=== PATIENT | female | born 1965 | race Caucasian/White ===

== ENCOUNTER → 2016-08-09 | Outpatient (CLI) | payer OTHER ==
[~2016-08-09] VITALS: Ht 154.9 cm; Wt 100.7 kg
[~2016-08-09] MED LIST: ACCUNEB SO1.25 MG/1 INH; AMERGE1 MG; ASMANEX0.135 G1; ASMANEX220 MC2 IH; ASPIR 8181 MG PO; AYR SALINE50 M1; BARIATRIC VITAMIN PO; BUTALB-ACETAMI1 EACH PO; CARAFATE1 GM/10 ML PO; CYCLOBENZAPRINE5 MG PO; ESCITALOPRAM OX10 MG PO; FLONASE 0.05%50 MCG; FOLBIC RF TABL1 EACH PO; HYDROCHLOROTH12.5 M1 PO; INDERAL 20 MG T20 M1; LAMICTAL100 MG PO; LEVOTHYROXINE0.05 MG PO; MEDROLDOSEPACK PO; MOBIC15 MG PO; NEURONTIN 300300 M1 PO; NODOLOR CAPSUL1 EACH; NYAMYC15 GM TOP; OMEPRAZOLE20 M1 PO; OXYCONTIN10 M1 PO; PRINIVIL10 MG PO; PROMETHAZINE12.5 M1 PO; PROPRANOLOL 1010 MG; PROPRANOLOL 4040 M1 PO; SINGULAIR 10 MG10 M1 PO; STRATTERA80 MG PO; TRAZODONE HCL50 MG; TROKENDI XR25 MG; VISTARIL 25 MG25 M1 PO; VITAMIN B-125000 MCG SL; VITAMIN D31000 UNI2 PO; VITAMIN D3400 UNIT PO; VOLTAREN GEL 1100 G1; WELLBUTRIN XL300 MG PO; ZYRTEC10 MG PO
--- NOTE | ~2016-08-09 | P ---
[facility] [place] [address] PROCEDURE REPORT Name: TRACIE BRANDTSamson Lomax Room #: REG [facility].#: [id number] Admission: 08/09/16 Attend Phys: Dusty Maya MD, F Discharge: Date of : 69 Report #: [id number] THIS REPORT FOR: //name// CC: Kerry Maya DATE OF SERVICE: 08/09/2016 SURGEON: Dusty Maya M.D. PREOPERATIVE DIAGNOSES: 1. Morbid obesity (body mass index 42), status post laparoscopic adjustable gastric band placement. 2. Gastroesophageal reflux disease. 3. Obstructive sleep apnea. 4. Chronic obstructive pulmonary disease. 5. Asthma. 6. Arthritis. 7. Diverticulosis. POSTOPERATIVE DIAGNOSES: 1. Morbid obesity (body mass index 42), status post laparoscopic adjustable gastric band placement. 2. Abnormal adjustable gastric band motion. 3. Gastroesophageal reflux disease. 4. Obstructive sleep apnea. 5. Chronic obstructive pulmonary disease. 6. Asthma. 7. Arthritis. 8. Diverticulosis. PROCEDURE: Thorough esophagogastroduodenoscopy. ANESTHESIA: Propofol 100 mg and ketamine 30 mg. ESTIMATED BLOOD LOSS: Zero. SPECIMEN: None. COMPLICATIONS: None appreciated. INDICATIONS FOR PROCEDURE: This is a 51-year-old female patient, being followed for consideration for revisional bariatric surgery. She stands 5 feet 1-1/2 inches and weighs nearly 223 pounds with a BMI of 42.1. She has tried numerous weight loss programs and plans and even underwent laparoscopic adjustable gastric band placement several years ago. She has maintained a 75 pound weight [facility] [address] [place] [address] PROCEDURE REPORT Name: LEANNE BRANDT Room #: REG [facility]#: [id number] Admission: 08/09/16 Attend Phys: Dusty Maya MD, F Discharge: Date of : 69 Report #: [id number] loss from the operation, but is unable to keep down any food whatsoever. She complains of reflux and regurgitation of food. As a part of her workup for revisional surgery, EGD is indicated. PROCEDURAL FINDINGS: The GE junction and Z-line were measured at 37 cm from the teeth with the band enfolding measured at 40-41 cm from the teeth. The esophagus was normal. The stomach and duodenum were normal down to the third portion. On retroflexion of the scope, the band showed abnormal motion with swallowing. The patient was awakened enough to swallow during the procedure. No other significant findings were present. DESCRIPTION OF PROCEDURE IN DETAIL: After the benefits and risks of the procedure were explained to the patient, which include but not limited to risks of bleeding and perforation, an informed consent was obtained. The patient was identified in the preoperative holding area. She was then taken to the procedure room where a timeout was performed to identify the correct patient and procedure. A bite block was placed. The patient was then given IV sedation. When adequately sedated, the gastroscope was inserted into the patient's oropharynx and then passed down the esophagus, where the GE junction and Z-line were visualized. The scope was then advanced beyond the enfolding of the adjustable gastric band. The scope was advanced beyond the pylorus to the third portion of the duodenum. The scope was then slowly withdrawn. With circumferential views of the duodenum, there were no polyps, masses, diverticula, or ulcers seen. The duodenal papilla was normal. With the scope withdrawn into the antrum of the stomach, the scope was retroflexed and a retrograde view of the cardia was seen. The patient was awakened slightly and asked to swallow where abnormal motion was present. The scope was then straightened and slowly withdrawn. The stomach was decompressed. There were no polyps, masses, diverticula, or ulcers seen in the stomach. The scope was then slowly withdrawn through the normal appearing esophagus. The patient tolerated the procedure well. She was awakened and returned to the recovery room in stable condition with no apparent complications. My recommendation is that the patient will be appropriate for removal of her adjustable gastric band and for revisional bariatric surgery in the form of sleeve gastrectomy, which can likely be undertaken during laparoscopic removal of her adjustable gastric band and port. <ELECTRONICALLY SIGNED> By: Dusty Maya MD, FACS 08/11/16 0834 1607 1802 Dusty Maya MD, FACS /nt
== END ==
LOC: GI 08:17
DX: K21.9 Gastro-esophageal reflux disease without esophagitis (principal); G47.33 Obstructive sleep apnea (adult) (pediatric); J45.909 Unspecified asthma, uncomplicated; J44.9 Chronic obstructive pulmonary disease, unspecified; M19.90 Unspecified osteoarthritis, unspecified site; K57.30 Diverticulosis of large intestine without perforation or abscess without bleeding; I10 Essential (primary) hypertension; F41.8 Other specified anxiety disorders; Z87.891 Personal history of nicotine dependence; Z98.84 Bariatric surgery status
CPT/HCPCS: 62110; 62900

== ENCOUNTER → 2016-11-03 | Outpatient (CLI) | payer OTHER ==
--- NOTE | ~2016-11-03 | 2DMMODE ---
[facility] [address] [place] [address] 2 D/M-MODE ECHOCARDIOGRAM Name: KARLYLEANNE J Room #: REG [facility]#: [id number] Admission: 11/03/16 Attend Phys: Chace Titus MD Discharge: Date of : 69 Date of Service: 11/03/16 1445 Report #: [id number] THIS REPORT FOR: //name// ADDENDUM APPROVED REPORT Study performed: 11/03/2016 11:37:10 EXAM: Comprehensive 2D, Doppler, and color-flow Echocardiogram Patient Location: Out-Patient Room #: Echo lab Status: routine Other Information Study Quality: Adequate Indications Hypertension/HDD Enlarged heart 2D Dimensions RVDd: 36.58 mm LVEF(%): 64.79 (>50%) IVSd: 9.05 (7-11mm) LVOT Diam: 25.22 (18-24mm) LVDd: 53.90 mm PWd: 11.44 (7-11mm) Ascending Ao: 37.18 (22-36mm) LVDs: 34.62 (25-40mm) Aortic Root: 35.44 mm IVC: 12.00 mm Arevalo's LVEF: 64.79 % Volumes Left Atrial Volume (Systole) Single Plane 4CH: 41.60 mL Single Plane 2CH: 39.68 mL LA ESV Index: 24.00 mL/m2 Aortic Valve AoV Peak Ryan.: 1.89 m/s AO Peak Gr.: 14.35 mmHg LVOT Max P.15 mmHg LVOT Max V: 1.02 m/s DOC Vmax: 2.69 cm2 AI Vmax: 4.08 m/s AI Amador: 2.97 m/s2 AI PHT: 398.54 ms Mitral Valve E/A Ratio: 1.2 MV Decel. Time: 207.[address] [facility] [place] [place] [address] 2 D/M-MODE ECHOCARDIOGRAM Name: LEANNE BRANDT Room #: [facility]#: [id number] Admission: 11/03/16 Attend Phys: Chace Titus MD Discharge: Date of : 69 Date of Service: 11/03/16 1445 Report #: [id number] MV E Max Ryan.: 1.10 m/s MV A Ryan.: 0.92 m/s MV PHT: 60.17 ms IVRT: 106.11 ms Pulmonary Valve PV Peak Ryan.: 0.92 m/s PV Peak Gr.: 3.36 mmHg Pulmonary Vein P Vein S: 0.57 m/s P Vein A: 0.24 m/s P Vein D: 0.43 m/s P Vein A Dur.: 96.9 msec P Vein S/D Ratio: 1.33 Tricuspid Valve TR Peak Ryan.: 2.57 m/s RAP Estimate: 5.00 mmHg TR Peak Gr.: 26.37 mmHg PA Pressure: 31.00 mmHg Left Ventricle The left ventricle is normal size. There is normal LV segmental wall motion. Left ventricle wall thickness was at the upperlimits of normal The left ventricular systolic function is normal. The left ventricular ejection fraction is within the normal range. LVEF is 55-60%. The left ventricular diastolic function is normal. Right Ventricle The right ventricle is normal size. The right ventricular systolic function is normal. Atria The left atrium size is normal. The right atrium size is normal. Aortic Valve The aortic valve is normal in structure. Aortic valve is calcified. Mild aortic regurgitation. There is no aortic valvular stenosis. Mitral Valve The mitral valve is normal in structure. Trace mitral regurgitation. No evidence of mitral valve stenosis. Tricuspid Valve The tricuspid valve is normal in structure. There is trace tricuspid regurgitation. The right atrial pressure is estimated at 5 mmHg. There is no pulmonary hypertension. [facility] [address] [place] [address] 2 D/M-MODE ECHOCARDIOGRAM Name: LEANNE BRANDT Room #: REG [facility]#: [id number] Admission: 11/03/16 Attend Phys: Chace Titus MD Discharge: Date of : 69 Date of Service: 11/03/16 1445 Report #: [id number] Pulmonic Valve The pulmonary valve is normal in structure. Trace pulmonic regurgitation. Great Vessels The aortic root is normal in size. The ascending aorta is borderline dilated. IVC is normal in size and collapses >50% with inspiration. Pericardium There is no pericardial effusion. <Conclusion> The left ventricle is normal size. Left ventricle wall thickness was at the upperlimits of normal The left ventricular systolic function is normal. The right ventricle is normal size. The left atrium size is normal. Mild aortic regurgitation. The mitral valve is normal in structure. There is trace tricuspid regurgitation. The right atrial pressure is estimated at 5 mmHg. There is no pulmonary hypertension. <ELECTRONICALLY SIGNED> By: Chace Titus MD 11/03/16 1445 1445 1445 Chace Titus MD /INF
== END ==
LOC: CV 07:45
DX: I51.7 Cardiomegaly (principal); I35.1 Nonrheumatic aortic (valve) insufficiency

== ENCOUNTER 2016-12-02 05:04 | Day surgery (SDC) | payer OTHER ==
[~2016-12-02] VITALS: Ht 154.9 cm; Wt 97.1 kg
[2016-12-02] VITALS (8 sets, daily range): BP systolic 89–135; BP diastolic 53–93
--- NOTE | ~2016-12-02 | S ---
[facility] [place] [address] SURGICAL PATH RPT PROCEDURE Name: LEANNE BRANDT [id number] Admission: 12/02/16 Date of : 69 Discharge: 12/03/16 Report #: [id number] Path Case #: [id number] PATHOLOGY REPORT COLLECTION DATE: 12/02/2016 RECEIVED DATE: 12/02/2016 SUBMITTING PHYS: Dr. Dusty Maya OTHER PHYS: Dr. Kerry Hernandez SPECIMEN(S) RECEIVED: A.Gastric sleeve B.Old lap band * * * * * * * * * * * * FINAL DIAGNOSIS: A. Gastric mucosa, gastric sleeve, partial sleeve gastrectomy: - No diagnostic abnormalities present, history of morbid obesity. B. Old lap band, removal: - 45.3 cm of tubing material with a circular 9.5 cm fluid-filled band as well as a 5.5 cm port (gross exam only). (IUV:mgr; 12/05/2016) PATHOLOGIST: Marissa Charles M.D. REPORT ELECTRONICALLY SIGNED BY: Marissa Charles M.D. DATE/TIME: 12/05/2016 18:56 * * * * * * * * * * * * GROSS PATHOLOGY: A. The specimen is received in formalin, labeled "Leanne Brandt, gastric sleeve" is a partial gastrectomy specimen weighing 133 g and measuring 15.0 x 7.5 x 2.5 cm. The serosa is purple pollock to diaz-red, smooth and focally congested. The margins of resection are closed with a line of lisseth. The mucosa has a pink pollock to diaz red, velvety to congested appearance. The normal rugal folds are noted. No mass lesions or transmural defects are identified. [employer] sections are submitted in cassettes A1-A3. B. The specimen is received fresh, labeled "Leanne Brandt, old lap band" is a catheter with attached synthetic band and separately received portal. The segment of freely movable, pollock-white catheter tubing measures 45.3 cm in length the maximum diameter of 0.3 cm. At one end of the tubing is a circular synthetic, partially fluid filled band measuring 9.5 x 2.0 x 0.7 cm. The following is imprinted on the outer surface "ALLERGEN". No soft tissue is attached. No focal abnormalities are noted area in also the container is a catheter portal measuring 5.5 x 2.4 x 1.2 cm. On one aspect is a circular injection site measuring 1.1 cm in diameter. On the opposing surface [address] [address] SURGICAL PATH RPT PROCEDURE Name: ABHILASH BRANDTELYN Monie Room #: [facility]P [facility]..#: [id number] Admission: 12/02/16 Date of : 69 Discharge: 12/03/16 Report #: [id number] Path Case #: [id number] the following is imprinted "11.0 ALLERGEN 75LK 1408". No soft tissue is attached. No focal abnormalities are noted. No sections are taken. (JWP; 12/02/2016) CLINICAL HISTORY: Morbid obesity INITIAL CPT CODE(S): A; 18136 B; 82429 Professional services performed by [facility] at [facility] [address], [place] [address] Technical services performed by [employer] at [address] [place] [address], [address], [place] [address]. [facility] [address] [place] [address] PHONE: [phone] DIRECTOR: Jaden Chacon M.D. * * * END OF REPORT * * *
--- NOTE | ~2016-12-02 | O ---
[facility] [place] [address] OPERATIVE REPORT Name: LEANNE BRANDT Room #: [facility].#: [id number] Admission: 12/02/16 Attend Phys: Dusty Maya MD, F Discharge: 12/03/16 Date of : 69 Report #: [id number] THIS REPORT FOR: //name// CC: Kerry Maya DATE OF SERVICE: 12/02/2016 SURGEON: Dusty Maya MD SASH MAKER: Anastacia Lr MD PREOPERATIVE DIAGNOSES: 1. Morbid obesity (body mass index 42.5). 2. History of laparoscopic adjustable gastric band placement. 3. Abnormal motion of adjustable gastric band. 4. Gastroesophageal reflux disease. 5. Hypertension. 6. Arthritis. 7. Obstructive sleep apnea. 8. Hyperlipidemia. 9. Depression. POSTOPERATIVE DIAGNOSES: 1. Morbid obesity (body mass index 42.5). 2. History of laparoscopic adjustable gastric band placement. 3. Intra-abdominal adhesions. 4. Incisional ventral hernia (at the reservoir site). 5. Hypertension. 6. Arthritis. 7. Obstructive sleep apnea. 8. Hyperlipidemia. 9. Depression. PROCEDURE: 1. Laparoscopic removal of adjustable gastric band and port. 2. Laparoscopic lysis of adhesions. 3. Laparoscopic sleeve gastrectomy (revisional) with EGD. 4. Repair of incisional ventral hernia. ANESTHESIA: General endotracheal anesthesia and local anesthetic. ESTIMATED BLOOD LOSS: 10 mL. SPECIMEN: 1. Adjustable gastric band and port. [facility] [address] [place] [address] OPERATIVE REPORT Name: LEANNE BRANDT Room #: DEP [facility].#: [id number] Admission: 12/02/16 Attend Phys: Dusty Maya MD, F Discharge: 12/03/16 Date of : 69 Report #: [id number] 2. Lateral stomach. COMPLICATIONS: None appreciated. INDICATIONS FOR PROCEDURE: This is a 51-year-old female patient of Dr. Kerry Hernandez, who stands 5 feet 1/2 inch and weighed 221 pounds at her most recent office visit with a BMI of 42.5. Her maximum weight is 299 pounds. She has tried numerous weight loss programs and plans and eventually underwent laparoscopic adjustable gastric band placement several years ago. She lost nearly 80 pounds from the operation; however, she has difficulty with reflux and regurgitation of food. I have removed fluid from the band and she had significant relief of her symptoms. She underwent an EGD, which revealed abnormal motion of the band with swallowing and respirations. She presents now for laparoscopic removal of her adjustable gastric band and port as well as possible laparoscopic sleeve gastrectomy. OPERATIVE FINDINGS: Upon entrance into the abdominal cavity, scar tissue was present from the band as a foreign body. The scar tissue was not significant and the plication sutures appeared to no longer be intact. After removal of the band from around the stomach, the stomach was not significantly denuded. EGD was performed after removal of the band and normalization of the anatomy. The esophagus appeared normal as did the stomach and duodenum to the third portion. No polyps, masses, diverticula or ulcers were identified. There was no evidence for hiatal hernia on retroflexion of the scope. The EGD scope served as a 34-Uzbek bougie. After creation of the sleeve, no leak was present. Immediately after applying Tisseel to the staple line, the gastroscope was used to gently insufflate air into the stomach. No air bubbles were seen forming within the Tisseel. Likewise, there was no endoluminal bleeding and the mucosa appeared smooth and not irritated. No other significant intra-abdominal pathology was identified other than a small hernia at the tubing exit site, which was closed primarily during removal of the reservoir. The excised stomach held with 1 liter of fluid. At the conclusion of the operation, the sponge, needle, and instrument counts were correct. There was no evidence for iatrogenic injury. DESCRIPTION OF PROCEDURE IN DETAIL: After the risks, benefits, and expectations of the operation were discussed in detail with the patient, informed consent was obtained. The patient was identified in the preoperative holding area. She was given IV antibiotics in line with the SCIP metrics. The patient was then taken to the operating room and she was placed in the supine position. SCDs were placed on the patient's bilateral lower extremities and pneumatic compression was initiated. The patient was then given IV sedation and she was intubated without incident. She was placed in the low lying dorsal lithotomy position in [facility]. A bite block and orogastric tube were placed by Anesthesia. The patient's abdomen was then prepped and draped in the standard sterile fashion. A time-out was performed to identify the correct patient and [address] [address] OPERATIVE REPORT Name: LEANNE BRANDT Room #: DEP [facility] Anmol#: [id number] Admission: 12/02/16 Attend Phys: Dusty Maya MD, F Discharge: 12/03/16 Date of : 69 Report #: [id number] procedure. Local anesthetic was infiltrated into the skin and subcutaneous tissue in the left supraumbilical area where a small transverse incision was made through an old scar. The 5 mm Visiport was placed intraperitoneally with a 0-degree angled laparoscope. Pneumoperitoneum was then achieved with insufflation of carbon dioxide to 15 mmHg. A 30-degree angled laparoscope was inserted. A right mid abdominal 15 mm port was then placed under direct visualization after local anesthetic was infiltrated into the skin and subcutaneous tissue and an appropriately sized incision was made. A 30-degree angled laparoscope had been inserted. Additional 5 mm ports x 2 were placed in the left mid and left lateral abdomen under direct visualization using a similar technique. The patient was then placed in the reverse Trendelenburg position. Local anesthetic was infiltrated into the skin and subcutaneous tissue in the subxiphoid area through the old incisional scar used for her reservoir. A 5 mm port obturator was then used to create a passageway for the Zayda liver retractor, which was positioned intraabdominally and held in place with the [employer] device. Adhesiolysis was undertaken next. The plication sutures appeared to have not held and transparent scar tissue was present around the band. This was carefully divided with the ultrasonic dissector with care taken to avoid direct contact with the stomach to avoid injury by thermal spread. I continued to take down adhesions until the buckle of the adjustable gastric band was visible. The tubing was divided close to the abdominal exit site. The band was then unbuckled. The buckle was divided sharply and removed as well as the remainder of the adjustable gastric band. Decision was made at this point to commence with the sleeve gastrectomy as the stomach that was surrounded by the band was not significantly denuded. The EGD scope was advanced into the patient's oropharynx, down the esophagus and into the stomach, then beyond the pylorus to the third portion of the duodenum. The scope was then slowly withdrawn. The scope was retroflexed in the stomach and a retrograde view of the cardia was seen. The scope was then straightened and slightly withdrawn. It was adjusted such that it would lie against the lesser curvature of the stomach. The stomach was then decompressed using the orogastric tube. The gastrosplenic ligament and short gastric vessels were then divided with the ultrasonic dissector with good hemostasis. Dissection was carried up to the ladonna of the diaphragm. The tract of the adjustable gastric band was also taken down to help normalize the anatomy. Dissection was then carried inferiorly along the greater curvature of the stomach to partially divide the gastrocolic ligament. Dissection was undertaken to an area that was 4 cm lateral/proximal to the pylorus. The stomach was then rotated medially and all posterior adhesions were taken down. The orogastric tube was then removed from the patient's stomach. After the stomach was fully decompressed and it was ensured [address] [address] OPERATIVE REPORT Name: LEANNE BRANDT Room #: DEP [facility] M..#: [id number] Admission: 12/02/16 Attend Phys: Dusty Maya MD, F Discharge: 12/03/16 Date of : 69 Report #: [id number] that the gastroscope was against the lesser curvature of the stomach, the gastric sleeve was created. The 60 mm powered endoscopic JESSICA stapler was used to staple stomach starting distally and ending 1 cm lateral to the left ladonna of the diaphragm. Each staple load was buttressed with Yulia-Strips. The initial 2 firings of the stapler were with black loads, the remainder of these staple loads were green . The excised stomach was then placed in the right upper quadrant of the abdomen for removal. The stomach was removed through the 15 mm port site and after doing so, an 0 PDS suture was placed with the Emeka-Zeenat laparoscopic fascial closure device. The suture was tagged and the port was replaced. Tisseel was then applied to the gastric sleeve staple line with the [employer] aerosolizer. A 10 mL was used along the entire staple line with good coverage. Immediately after applying Tisseel to the staple line, the leak test was performed as noted above. The leak test was negative. The gastroscope was fully withdrawn through the patient's oropharynx. The abdominal cavity was then surveyed with findings as noted above. No evidence for iatrogenic injury and no other significant pathology other than a small hernia at the catheter exit site at the skin. The Zayda liver retractor was removed under direct visualization. The abdominal cavity was then desufflated and the fascial suture had been tied under direct visualization to ensure no incorporation of intraabdominal content. After desufflating the abdominal cavity, the ports were removed and the incisions were closed with interrupted subcuticular 4-0 Monocryl sutures and Dermabond. The incision at the subxiphoid area was extended through the old scar and dissection was carried down to the reservoir. The reservoir was removed with appropriate traction. The sutures were divided and removed. After taking the reservoir out, a small fascial defect was present. A uxuhck-mg-xyysn 0 PDS suture was placed under direct visualization and tied to close the hernia defect. The wound was then irrigated and local anesthetic was infiltrated into the skin and subcutaneous tissue. Interrupted 3-0 Vicryl sutures were used to close the deep subcutaneous tissue. The subdermal tissue was closed with a running 3-0 Vicryl suture and a running 4-0 Monocryl suture was used to close the skin incision. Dermabond was applied to all skin incisions. The patient tolerated the procedure well. She was awakened, extubated, and taken to the recovery room in stable condition with no apparent intraoperative complications. <ELECTRONICALLY SIGNED> By: Dusty Maya MD, FACS 12/04/16 2246 1444 1534 Dusty Maya MD, FACS /nt
[2016-12-03 03:40] VITALS: BP 142/94
[2016-12-03 04:34] LABS: HEMATOCRIT 41.9 % (37.0-47.0); HEMOGLOBIN 14.1 gm/dL (12.0-15.0); MCH 31.3 pg (26.0-34.0); MCHC 33.7 g/dL (28.0-37.0); MCV 92.6 fL (80.0-100.0); PLATELET COUNT 263 thou/uL (150-400); RBC 4.53 mil/uL (4.20-5.00); RDW 14.3 % (10.5-14.5)
[2016-12-03 04:45] LABS: CALCIUM 8.5 mg/dL (8.5-10.1); CREATININE 0.7 mg/dL (0.6-1.0); POTASSIUM 4.1 mmol/L (3.5-5.1)
[2016-12-03 05:06] LABS: MANUAL DIFF YES
[2016-12-03 07:19] LABS: ABSOLUTE NEUTROPHILS 6.4 thou/uL (1.4-8.2); TOTAL CELL COUNT 100
[2016-12-03 07:20] LABS: ANISOCYTOSIS 1+
[2016-12-03 08:09] VITALS: BP 122/70
[2016-12-03] MEDS ORDERED: ZOFRAN ODT4 MG DISSOLVE (08:50)
[2016-12-03] MEDS ORDERED: HYDROCODONE-ACE15 ML PO (08:50)
[2016-12-03 10:40] VITALS: BP 122/70
== END 2016-12-03 11:29 | disposition home or self-care (01) ==
LOC: OR 05:04 → TBA 05:04 → GI 09:10 → 4N 11:03 → EDSTATUS 11:16 → OR 11:18
PROVIDERS: Surgery
DX: E66.01 Morbid (severe) obesity due to excess calories (principal); Z68.41 Body mass index [BMI] 40.0-44.9, adult; K43.2 Incisional hernia without obstruction or gangrene; K21.9 Gastro-esophageal reflux disease without esophagitis; I10 Essential (primary) hypertension; M19.90 Unspecified osteoarthritis, unspecified site; G47.33 Obstructive sleep apnea (adult) (pediatric); E78.5 Hyperlipidemia, unspecified; F32.9 Major depressive disorder, single episode, unspecified; Z88.1 Allergy status to other antibiotic agents; Z88.8 Allergy status to other drugs, medicaments and biological substances; Z91.048 Other nonmedicinal substance allergy status; F41.9 Anxiety disorder, unspecified; J45.909 Unspecified asthma, uncomplicated; K76.0 Fatty (change of) liver, not elsewhere classified
CPT/HCPCS: 50010; 50101; 50222; 50249; 50386; 50525; 50555; 50739; 50740; 50962; 53307; 53311; 54022; 55245; 56462; 56525; 56526; 57092; 62110; 62900; 70005

== ENCOUNTER → 2016-12-12 | Outpatient (CLI) | payer OTHER ==
[~2016-12-12] MED LIST changes: +HYDROCODONE-ACE15 ML PO; +ZOFRAN ODT4 MG DISSOLVE
== END ==
LOC: ULTRA 10:46
DX: M79.605 Pain in left leg (principal); M79.89 Other specified soft tissue disorders; Z98.84 Bariatric surgery status

== ENCOUNTER → 2017-07-26 | Outpatient (CLI) | payer OTHER | LOC: RAD 06:06 | DX: K59.00 Constipation, unspecified (principal) ==

== ENCOUNTER → 2020-06-09 | Outpatient (CLI) | payer OTHER | LOC: LAB 13:31 | PROVIDERS: ATTEND Specialist | DX: Z01.812 Encounter for preprocedural laboratory examination (principal); Z20.822 Contact with and (suspected) exposure to COVID-19 ==